=== PATIENT | female | born 1975 | race Asian ===

== ENCOUNTER 2018-04-20 09:50 | Inpatient (IN) | payer OTHER ==
[~2018-04-20] VITALS: Ht 157.5 cm; Wt 51.0 kg
[2018-04-20] VITALS (7 sets, daily range): BP systolic 89–117; BP diastolic 52–64; PULSE 120
[2018-04-20] MEDS ORDERED: NS 1,000 ML IV ONE ×2 (10:15→11:00)
[2018-04-20] MEDS: METOPROLOL 5 MG/5 ML VIAL IV SCH ×2 (10:21→15:07)
--- NOTE | 2018-04-20 10:22 | REP ---
PORTABLE CHEST, ONE VIEW: HISTORY: Cough. The lungs are clear. The heart is normal in size. The pulmonary vasculature is normal in appearance. IMPRESSION: No acute disease. Electronically Signed by Jose Cruz Garces MD 04/20/2018 10:24 A
[2018-04-20 10:27] LABS: BASO # 0.1 10^3/uL (0.0-0.2); BASO % 0.8 % (0.0-1.0); EOS # 0.1 10^3/uL (0.0-0.50); EOS % 1.4 % (0.0-3.0); HEMATOCRIT 39.3 % (36.0-47.0); HEMOGLOBIN 12.7 g/dl (12.0-15.5); LYMPH # 2.2 10^3/uL (1.5-4.5); LYMPH % 33.2 % (24.0-44.0); MEAN CORPUSCULAR HEMOGLOBIN 25.9 pg (27.0-33.0); MEAN CORPUSCULAR HGB CONC 32.3 g/dl (32.0-36.5); MONO # 0.6 10^3/uL (0.0-0.8); MONO % 8.7 % (0.0-5.0); NEUTROPHILS # 3.7 10^3/uL (1.8-7.7); NEUTROPHILS % 55.7 % (36.0-66.0); PLATELET COUNT, AUTOMATED 271 10^3/uL (150-450); RED BLOOD COUNT 4.91 10^6/uL (4.00-5.40); WHITE BLOOD COUNT 6.7 10^3/uL (4.0-10.0)
[2018-04-20] MEDS ORDERED: METOPROLOL TART 25 MG TABLET PO ONE (10:30)
[2018-04-20 10:38] LABS: INR 0.94; PROTHROMBIN TIME 12.6 SECONDS (12.1-14.4)
[2018-04-20 10:53] LABS: HCG, SERUM QUALITATIVE NEGATIVE (NEGATIVE)
[2018-04-20 11:04] LABS: ALT/SGPT 35 U/L (12-78); BLOOD UREA NITROGEN 11 MG/DL (7-18); CALCIUM LEVEL 8.9 MG/DL (8.5-10.1); CARBON DIOXIDE LEVEL 20 MEQ/L (21-32); CHLORIDE LEVEL 108 MEQ/L (98-107); CPK CREATINE PHOSPHOKINASE 120 U/L (26-192); CREATININE FOR GFR 0.72 MG/DL (0.55-1.30); GLOMERULAR FILTRATION RATE > 60.0 (>58); GLUCOSE, FASTING 103 MG/DL (70-100); POTASSIUM SERUM 3.8 MEQ/L (3.5-5.1); SODIUM LEVEL 141 MEQ/L (136-145)
[2018-04-20 11:05] LABS: ALBUMIN 3.8 GM/DL (3.2-5.2); BILIRUBIN,DIRECT < 0.1 MG/DL (0.0-0.2); BILIRUBIN,TOTAL 0.6 MG/DL (0.2-1.0); CK-MB VALUE MASS < 1.0 NG/ML (<3.6); MB/CK RELATIVE INDEX 0.83 (< OR =4); NT-PRO BNP 667 PG/ML (<125); THYROXINE (T4) 12.5 UG/DL (4.5-12.0); TOTAL PROTEIN 7.7 GM/DL (6.4-8.2); TROPONIN I < 0.02 NG/ML (< 0.10)
[2018-04-20] MEDS ORDERED: HAIRTAB5 PO (11:19)
[2018-04-20] MEDS ORDERED: ISOVUE-370 76% 100ML VIAL (Q9967) As Ordered ONE (11:26)
[2018-04-20] MEDS ORDERED: APIXABAN 5 MG TAB (ELIQUIS) PO ONE (12:45)
--- NOTE | 2018-04-20 12:45 | REP ---
CT pulmonary angiogram: With IV contrast. History: Rapid atrial fibrillation. Shortness of breath. Comparison is made with today's chest x-ray. Comparison studies: Today's chest x-ray. Contrast dose: 75 cc's of Isovue [address] technique: Helical scanning is acquired and overlapping 1.5 mm and contiguous 3 mm axial images are reformatted. In addition, maximum intensity projection and multiplanar re-formation images are generated in sagittal and coronal imaging projections. CT pulmonary angiographic findings: There is good opacification of the pulmonary arterial tree. There is no CT evidence of pulmonary embolism. Thoracic aorta enhances homogeneously and is normal in course and caliber. No mediastinal mass or adenopathy is observed. No hilar adenopathy is seen. The lung arguelles are clear. There is a mild pectus. No acute bony abnormality is appreciated. No adrenal abnormality is seen. The visualized upper abdominal structures are unremarkable. Impression: Negative CT pulmonary angiogram. No CT evidence of pulmonary embolus. Electronically Signed by Jeremy Ferrer MD 04/20/2018 12:37 P
--- NOTE | 2018-04-20 14:18 | HPE ---
DATE OF ADMISSION: 04/20/2018 This is a 42-year-old female with no past medical history, who presents to the emergency room with palpitations and shortness of breath for the last 3 days. The shortness of breath is particularly predominantly as she was going to bed to lay back. She has never had symptoms like this before. She had no associated chest pain or diaphoresis. She has no early history of coronary disease in her family. In the emergency room (ER), she was found to be in atrial fibrillation (AFib) at 170 beats per minute. Was given 5 of Lopressor IV push. Responded very well and dropped between 88-90 with a rhythm of AFib and her symptoms got better. She was also given Lopressor 25 mg times one by mouth. At this time, her rate is at 85 beats per minute and she is resting comfortably. She had a second 12-lead EKG done, which showed atrial fibrillation, but showed what appeared to be ST elevations in the precordial leads. CT angio was done, which showed no evidence of pulmonary embolism (PE). So she will be admitted for further management in the progressive care unit (PCU). Dr. Murray is aware and will be our feather duster winder on consult. Again, no past medical history and surgical history. She has NO KNOWN DRUG ALLERGIES. Family history is negative for early coronary disease. SOCIAL HISTORY: Patient denies tobacco, alcohol, illicit drugs. She takes no medications at home. Review of systems is negative for all ten major systems except what is mentioned in the history of present illness (HPI). Vital signs: Blood pressure 108/55. Pulse is 88, irregular. Respiratory rate 20. Temperature is 96.5. Oxygen saturation is 98% on room air. Head is atraumatic, normocephalic. Neck: Supple. No jugular venous distention (JVD). Lungs are clear to auscultation. S1, S2 audible. No murmurs appreciated. Abdomen is soft. Positive bowel sounds. No pedal edema. Skin intact. Neurologic examination: Patient awake, alert, oriented times three. LABS: WBC 6.7, hemoglobin 12.7hematocrit 39.3, platelets are 271,000. Sodium 141, potassium 3.8, chloride 108, CO2 20, anion gap 13 BUN 11, creatinine 0.72, lactic acid 3.7, fasting glucose is 103, troponin is less than 0.02, BNP 667, TSH 1.4.9. IMPRESSION: Atrial fibrillation with rapid ventricular response (RVR), new onset. PLAN: The patient will be admitted to the progressive care unit (PCU). We will get a second troponin to rule out acute coronary syndrome. Lactic acid is a bit elevated at 3.7. I will put her on normal saline (NS) at 100 an hour. We will follow lactic levels. Dr. Murray will see the patient within the next 24 hours. In the meantime, we will get an echocardiogram of her heart, and I am going to continue her on Lopressor 25 mg by mouth twice a day and as per Dr. Murray Eliquis 5 mg by mouth twice a day.
[2018-04-20] MEDS: NS 1,000 ML IV SCH ×2 (15:07→18:42)
--- NOTE | 2018-04-20 18:10 | ECGEPIP ---
Stationary ECG Study [facility] ED Test Date: 2018-04-20 Pat Name: MARIA ELENA RAMÍREZ Department: Room: - Gender: F Floral Specialist: : [id number] Requested By: Ravinder Orozco Order Number: [id number] Reading MD: Ravinder Orozco Measurements Intervals [place] Rate: 156 P: TN: 0 QRS: 32 QRSD: 81 T: -4 QT: 264 QTc: 426 Interpretive Statements ATRIAL FIBRILLATION WITH RAPID VENTRICULAR RESPONSE POSSIBLE RIGHT VENTRICULAR CONDUCTION DELAY MODERATE ST DEPRESSION NO OLD ECG FOR COMPARISON Electronically Signed On 04-20-2018 18:10:12 EST by Ravinder Orozco
--- NOTE | 2018-04-20 18:11 | ECGEPIP ---
Stationary ECG Study [facility] ED Test Date: 2018-04-20 Pat Name: MARIA ELENA RAMÍREZ Department: Room: - Gender: F Intake Manager: EVELINA : [id number] Requested By: Ravinder Orozco Order Number: [id number] Reading MD: Ravinder Orozco Measurements Intervals [place] Rate: 84 P: [place]: 0 QRS: 53 QRSD: 85 T: 52 QT: 338 QTc: 400 Interpretive Statements ATRIAL FIBRILLATION POSSIBLE RIGHT VENTRICULAR CONDUCTION DELAY NONSPECIFIC ST T WAVE CHANGES ABNORMAL RHYTHM ECG CW 04/20/[address] ELEVATION - TO CONSIDER PERICARDITIS Electronically Signed On 04-20-2018 18:11:12 EST by Ravinder Orozco
[2018-04-20] MEDS: APIXABAN 5 MG TAB (ELIQUIS) PO SCH (20:00)
[2018-04-20] MEDS ORDERED: METOPROLOL TART 25 MG TABLET PO SCH (21:00)
[2018-04-21] VITALS (9 sets, daily range): BP systolic 94–133; BP diastolic 52–74; PULSE 118–130
[2018-04-21 05:52] LABS: BASO % 0.5 % (0.0-1.0); EOS # 0.1 10^3/uL (0.0-0.50); EOS % 1.9 % (0.0-3.0); HEMATOCRIT 33.3 % (36.0-47.0); HEMOGLOBIN 10.4 g/dl (12.0-15.5); LYMPH # 1.7 10^3/uL (1.5-4.5); LYMPH % 28.5 % (24.0-44.0); MEAN CORPUSCULAR HEMOGLOBIN 25.8 pg (27.0-33.0); MEAN CORPUSCULAR HGB CONC 31.2 g/dl (32.0-36.5); MEAN CORPUSCULAR VOLUME 82.6 fl (80.0-96.0); MONO # 0.5 10^3/uL (0.0-0.8); MONO % 8.9 % (0.0-5.0); NEUTROPHILS # 3.5 10^3/uL (1.8-7.7); PLATELET COUNT, AUTOMATED 219 10^3/uL (150-450); RED BLOOD COUNT 4.03 10^6/uL (4.00-5.40); WHITE BLOOD COUNT 5.9 10^3/uL (4.0-10.0)
[2018-04-21 06:11] LABS: BLOOD UREA NITROGEN 8 MG/DL (7-18); CALCIUM LEVEL 7.6 MG/DL (8.5-10.1); CARBON DIOXIDE LEVEL 21 MEQ/L (21-32); CHLORIDE LEVEL 115 MEQ/L (98-107); CREATININE FOR GFR 0.48 MG/DL (0.55-1.30); GLOMERULAR FILTRATION RATE > 60.0 (>58); GLUCOSE, FASTING 91 MG/DL (70-100); POTASSIUM SERUM 3.6 MEQ/L (3.5-5.1); SODIUM LEVEL 142 MEQ/L (136-145)
[2018-04-21] MEDS ORDERED: NS 500 ML IV ONE (07:00)
[2018-04-21] MEDS ORDERED: METOPROLOL TART 50 MG TAB PO ONE (07:00)
--- NOTE | 2018-04-21 08:07 | IPNPDOC ---
Date Seen The patient was seen on 04/21/18. Progress Note SUBJECTIVE: Pt's blood pressure has been too low to give metoprolol. IV NS 500 ml bolus given. AM dose of metoprolol still being held. Denies any sob, chest pain, pressure, tightness, lightheadedness, or dizziness. TELE: Afib 90-130bpm. PHYSICAL EXAMINATION: Vital signs:PLS SEE BELOW Head is atraumatic, normocephalic. Neck: Supple. No jugular venous distention (JVD). Lungs are clear to auscultation. Heart: irregularly irregular. S1, S2 audible. No murmurs appreciated. Abdomen is soft. Positive bowel sounds. No pedal edema. Skin intact. Neurologic examination: Patient awake, alert, oriented times three. LABS: PLS SEE BELOW IMPRESSION: Atrial fibrillation with rapid ventricular response (RVR), new onset. ASSESSMENT AND PLAN: This is a 42-year-old female with no past medical history, who presents to the emergency room with palpitations and shortness of breath for the last 3 days. The shortness of breath is particularly predominantly as she was going to bed to lay back. She has never had symptoms like this before. She had no associated chest pain or diaphoresis. She has no early history of coronary disease in her family. In the emergency room (ER), she was found to be in atrial fibrillation (AFib) at 170 beats per minute. Was given 5 of Lopressor IV push. Responded very well and dropped between 88-90 with a rhythm of AFib and her symptoms got better. She was also given Lopressor 25 mg times one by mouth. At this time, her rate is at 85 beats per minute and she is resting comfortably. She had a second 12-lead EKG done, which showed atrial fibrillation, but showed what appeared to be ST elevations in the precordial leads. CT angio was done, which showed no evidence of pulmonary embolism (PE). So she will be admitted for further management in the progressive care unit (PCU). Dr. Murray is aware and will be our warehouse clerk on consult. T he patient will be admitted to the progressive care unit (PCU). We will get a second troponin to rule out acute coronary syndrome. Lactic acid is a bit elevated at 3.7.on normal saline (NS). normal lactic levels this morning. Atrial Fibrillation with rapid ventricular response: on metoprolol 50 mg po bid,but held due to low blood pressure. no signs of chf. given ns iv bolus and iv cardizem once bp improves. Dr. Murray will see the patient echocardiogram of her heart, Eliquis 5 mg by mouth twice a day. Diet: CHILO Code: full Disposition: pending rate control. VS, I&O, 24H, Fishbone Vital Signs/I&O Vital Signs Date Time Temp Pulse Resp B/P (MAP) Pulse Ox O2 Delivery O2 Flow Rate FiO2 04/21/18 04:00 96.8 117 100/58 (72) 04/20/18 23:59 20 100 Room Air 04/20/18 11:55 2.0 I&O- Last 24 Hours up to 6 AM 04/21/18 06:00 Intake Total 860 ml Output Total 1100 ml Balance -240 ml Laboratory Data 24H LABS Laboratory Tests 2 04/20/18 10:16: Immature Granulocyte % (Auto) 0.2, White Blood Count 6.7, Red Blood Count 4.91, Hemoglobin 12.7, Hematocrit 39.3, Mean Corpuscular Volume 80.0, Mean Corpuscular Hemoglobin 25.9L, Mean Corpuscular Hemoglobin Concent 32.3, Red Cell Distribution Width 13.4, Platelet Count 271, Neutrophils (%) (Auto) 55.7, Lymphocytes (%) (Auto) 33.2, Monocytes (%) (Auto) 8.7H, Eosinophils (%) (Auto) 1.4, Basophils (%) (Auto) 0.8, Neutrophils # (Auto) 3.7, Lymphocytes # (Auto) 2.2, Monocytes # (Auto) 0.6, Eosinophils # (Auto) 0.1, Basophils # (Auto) 0.1, Nucleated Red Blood Cells % (auto) 0.0, Prothrombin Time 12.6, Prothromb Time International Ratio 0.94, Anion Gap 13, Glomerular Filtration Rate > 60.0, Lactic Acid Level 3.7*H, Calcium Level 8.9, Aspartate Amino Transf (AST/SGOT) 40 H, Alanine Aminotransferase (ALT/SGPT) 35, Alkaline Phosphatase 117, Total Bilirubin 0.6, Direct Bilirubin < 0.1, Total Creatine Kinase 120, Creatine Kinase MB < 1.0, Creatine Kinase MB Relative Index 0.83, Troponin I < 0.02, KZ-Emm-M-Type Natriuretic Peptide 667H, Total Protein 7.7, Albumin 3.8, Al bumin/Globulin Ratio 0.97L, Thyroid Stimulating Hormone (TSH) 1.490, Thyroxine (T4) 12.5H, Human Chorionic Gonadotropin, Qual NEGATIVE 04/20/18 14:40: Lactic Acid Followup at 4 Hours 1.7 04/20/18 18:10: Troponin I < 0.02 04/21/18 05:25: Immature Granulocyte % (Auto) 0.2, White Blood Count 5.9, Red Blood Count 4.03, Hemoglobin 10.4#L, Hematocrit 33.3L, Mean Corpuscular Volume 82.6, Mean Corpuscular Hemoglobin 25.8L, Mean Corpuscular Hemoglobin Concent 31.2L, Red Cell Distribution Width 13.4, Platelet Count 219, Neutrophils (%) (Auto) 60.0, Lymphocytes (%) (Auto) 28.5, Monocytes (%) (Auto) 8.9H, Eosinophils (%) (Auto) 1.9, Basophils (%) (Auto) 0.5, Neutrophils # (Auto) 3.5, Lymphocytes # (Auto) 1.7, Monocytes # (Auto) 0.5, Eosinophils # (Auto) 0.1, Basophils # (Auto) 0.0, Nucleated Red Blood Cells % (auto) 0.0, Anion Gap 6L, Glomerular Filtration Rate > 60.0, Calcium Level 7.6L, Blood Urea Nitrogen 8, Creatinine 0.48L, Sodium L evel 142, Potassium Level 3.6, Chloride Level 115H, Carbon Dioxide Level 21 CBC/BMP Laboratory Tests 04/20/18 10:16 Red Blood Count 4.91, Mean Corpuscular Volume 80.0, Mean Corpuscular Hemoglobin 25.9 L, Mean Corpuscular Hemoglobin Concent 32.3, Red Cell Distribution Width 13.4, Neutrophils (%) (Auto) 55.7, Lymphocytes (%) (Auto) 33.2, Monocytes (%) (Auto) 8.7 H, Eosinophils (%) (Auto) 1.4, Basophils (%) (Auto) 0.8, Neutrophils # (Auto) 3.7, Lymphocytes # (Auto) 2.2, Monocytes # (Auto) 0.6, Eosinophils # (Auto) 0.1, Basophils # (Auto) 0.1 04/21/18 05:25 Red Blood Count 4.03, Mean Corpuscular Volume 82.6, Mean Corpuscular Hemoglobin 25.8 L, Mean Corpuscular Hemoglobin Concent 31.2 L, Red Cell Distribution Width 13.4, Neutrophils (%) (Auto) 60.0, Lymphocytes (%) (Auto) 28.5, Monocytes (%) (Auto) 8.9 H, Eosinophils (%) (Auto) 1.9, Basophils (%) (Auto) 0.5, Neutrophils # (Auto) 3.5, Lymphocytes # (Auto) 1.7, Monocytes # (Auto) 0.5, Eosinophils # (Auto) 0.1, Basophils # (Auto) 0.0, Calcium Level 7.6 L Microbiology Microbiology 04/20/18 Blood Culture, Received Pending 04/20/18 Blood Culture, Received Pending ELIZABETH ARNDT MD Apr 21, 2018 06:59
--- NOTE | 2018-04-21 08:10 | ECHO ---
DATE OF PROCEDURE: 04/20/2018 REFERRING PHYSICIAN: Dr. Mary Tejeda. INDICATION: Atrial fibrillation. Height 157 cm. Weight 51 kg. DIMENSIONS: IVS: 1.0 LV: 3.7 LVPW: 0.9 LA: 3.3 Aorta: 2.9 Mitral E wave velocity: 9.6 FINDINGS: The study is of fair technical quality. This is surprising in consideration of small body habitus. The patient is in atrial fibrillation with controlled rate. Left ventricle is of normal size and overall normal systolic function, I estimate ejection fraction around 60%. Right ventricle appears also normal size and systolic function. Both atria appear grossly normal. Aortic mitral and tricuspid valves appear normal. Pulmonic valve was not well seen. No pericardial effusion is noted but especially the area adjacent to right ventricle was not well seen and I cannot completely rule it out. Inferior vena cava is normal size. Aortic root is normal. Aortic arch and abdominal aorta were not well seen. Doppler interrogation reveals no significant aortic valve disease. There is trace mitral and trace tricuspid insufficiency. Calculated pulmonary artery pressure is within normal limits. Evaluation of diastolic function is inconclusive due to atrial fibrillation but tissue Doppler velocity of mitral annulus are preserved and consequently I assume that the diastolic function is likely normal or near normal. CONCLUSIONS: 1. Study is of fair technical quality. 2. Normal LV size and systolic function. 3. No significant valvular disease. 4. Likely normal central venous pressure and normal pulmonary artery pressure. 5. No visualized pericardial effusion. COMMENT: SBE prophylaxis is not recommended. Study does not provide obvious explanation as to why the patient developed atrial fibrillation.
[2018-04-21] MEDS ORDERED: METOPROLOL TART 25 MG TABLET PO SCH (09:00)
[2018-04-21] MEDS ORDERED: METOPROLOL TART 50 MG TAB PO SCH (09:00)
[2018-04-21] MEDS: NS 1,000 ML IV SCH (09:34)
[2018-04-21] MEDS: APIXABAN 5 MG TAB (ELIQUIS) PO SCH (09:35)
[2018-04-21] MEDS ORDERED: SLF 3 ML SYR IV PRN (16:45)
[2018-04-21] MEDS ORDERED: ELIQ5TAB PO (19:55)
[2018-04-21] MEDS ORDERED: METO1TAB87 PO (19:55)
[2018-04-21] MEDS ORDERED: METOPROLOL TART 25 MG TABLET PO ONE (20:00)
[2018-04-21] MEDS ORDERED: APIXABAN 5 MG TAB (ELIQUIS) PO ONE (20:00)
--- NOTE | 2018-04-21 20:42 | CR ---
DATE OF CARDIOLOGY CONSULTATION: 04/21/2018 REFERRING PHYSICIAN: Dr. Le, Dr. Dela Cruz INDICATION: Atrial fibrillation with rapid ventricular response. HISTORY OF PRESENT ILLNESS Mrs. Rivas is previously unknown to me. She is very pleasant 42-year-old female originally from [facility] who was admitted yesterday evening from the emergency room where she presented with approximately 3-day history of shortness of breath and palpitations. She describes that initially she started having episodes of palpitations associated with shortness of breath with brief intervals that lasted only a few minutes each, but then over the course of next 2 days the frequency of the episodes increased and the day prior to the admission she started having palpitations and consistent shortness of breath in the evening hours. On the day of the admission on April 20 she presented to the ER with atrial fibrillation with rapid ventricular response. So on presentation to emergency room she was found to be in atrial fibrillation with rapid ventricular response. She received initially 5 mg of IV metoprolol that led to fairly significant slowing of her heart rate and then with oral metoprolol 25 mg her heart rate was reasonably well-controlled. But she remained in atrial fibrillation overnight. She had a CT angiography of the chest that revealed no evidence for pulmonary embolism and no obvious pathology. She also had an echocardiogram performed which revealed no significant abnormalities other than atrial fibrillation. This morning she converted to sinus rhythm. PAST MEDICAL HISTORY: Essentially negative. She does not carry any history of medical problems. She specifically denies any history of hypertension, diabetes or hypercholesterolemia. She does have a mild kyphoscoliosis since childhood. PAST SURGICAL HISTORY: Negative. FAMILY HISTORY: She denies any first-degree relatives with coronary artery disease or atrial fibrillation. SOCIAL HISTORY: The patient is . She is mother of three children. Denies any history of alcohol. Denies any drugs, does not smoke. She is . REVIEW OF SYSTEMS: She denies any unusual events lately. There was no sickness in her family. She denies any recent fever, chills, nausea or vomiting. There has been no cough. There has been no diarrhea. There were no peripheral edema. Rest of review of systems is negative. PHYSICAL EXAMINATION: On the physical examination Mrs. Jerrica Rivas is a middle aged female alert and oriented and appropriate, in no distress. VITAL SIGNS: Blood pressure 110/70, heart rate mostly in 80s. She is afebrile. Saturation is 100% on room air. Weight is documented as 51 kg. Her jugular venous pressure is not elevated. I do not appreciate goiter. There are no carotid bruits. LUNGS: Clear to auscultation bilaterally with good air movement. No wheezing, crackles or rhonchi are seen. CARDIAC: She has regular rhythm. No gallop, rub, or murmur is appreciated. ABDOMEN: Soft, nontender. No hepatosplenomegaly. EXTREMITIES: Free of edema. Peripheral pulses are good quality. There are no skin lesions. LABORATORY DATA: As of this morning her basic metabolic panel is normal. Yesterday evening she had elevated lactic acid at 3.7. She has normal liver function tests. Cardiac enzymes are negative times two. Her NT-proBNP was 667, albumin 3.8 and TSH 1.5. HCG was negative. INR was 0.9 and CBC this morning: hemoglobin 10.4, hematocrit 33, platelet count 219,000 and WBC count 5.9. IMAGING: As per history of present illness, CT angiography of the chest was unremarkable. Echocardiogram is also without significant pathology. She had two ECGs yesterday morning both of which revealed atrial fibrillation; initial one with rapid ventricular response, the second one with controlled response and both of them reveal nonspecific repolarization abnormalities. ASSESSMENT AND PLAN: Mrs. Johnson is a 42-year-old female who came with a 3-day history of initially likely paroxysmal but then persistent atrial fibrillation. She was in atrial fibrillation steadily approximately 36 hours based on her description. She does not have any additional risk factors for stroke, specifically she is young, she does not have any congestive heart failure. There is no history of hypertension, diabetes or prior stroke. In my opinion, the patient can be safely discharged. She has been now in sinus rhythm for approximately 12 hours without relapse. I do not believe that she needs to be chronically anticoagulated because of her very low MARISA-VASc score. Consequently, I will discharge her on aspirin 325 mg daily and will change her Eliquis to aspirin at 325 mg. She will still get her evening dose of metoprolol and Eliquis here. Medication tomorrow will be called to [facility].
[2018-04-21] MEDS ORDERED: ASPI81TA85 PO (21:38)
[2018-04-21] MEDS ORDERED: ASPI325T25 PO (21:43)
[2018-04-21] MEDS ORDERED: SLF 3 ML SYR IV SCH (22:00)
== END 2018-04-21 22:00 | disposition home or self-care (01) | DRG 310 ==
LOC: M ED 09:50 → M ED INP 13:43 → M PCU 15:23
PROVIDERS: ADMIT Internal Medicine; ATTEND General Practice
DX: I48.0 Paroxysmal atrial fibrillation (principal); I48.1 Persistent atrial fibrillation

== ENCOUNTER 2018-04-24 07:15 | Emergency (ER) | payer OTHER ==
[~2018-04-24] VITALS: Ht 157.5 cm; Wt 53.5 kg
[~2018-04-24 07:15] MED LIST: ASPI325T25 PO; ASPI81TA85 PO; ELIQ5TAB PO; HAIRTAB5 PO; METO1TAB87 PO
[2018-04-24 07:59] LABS: BASO % 0.3 % (0.0-1.0); EOS # 0.1 10^3/uL (0.0-0.50); EOS % 1.5 % (0.0-3.0); HEMATOCRIT 35.3 % (36.0-47.0); HEMOGLOBIN 11.2 g/dl (12.0-15.5); LYMPH # 1.3 10^3/uL (1.5-4.5); LYMPH % 20.4 % (24.0-44.0); MEAN CORPUSCULAR HEMOGLOBIN 26.2 pg (27.0-33.0); MEAN CORPUSCULAR HGB CONC 31.7 g/dl (32.0-36.5); MEAN CORPUSCULAR VOLUME 82.7 fl (80.0-96.0); MONO # 0.5 10^3/uL (0.0-0.8); MONO % 7.6 % (0.0-5.0); NEUTROPHILS # 4.6 10^3/uL (1.8-7.7); NEUTROPHILS % 69.9 % (36.0-66.0); PLATELET COUNT, AUTOMATED 227 10^3/uL (150-450); RED BLOOD COUNT 4.27 10^6/uL (4.00-5.40); WHITE BLOOD COUNT 6.6 10^3/uL (4.0-10.0)
--- NOTE | 2018-04-24 08:03 | REP ---
Portable chest x-ray: Single view. History: Chest pain. Comparison study: April 20, 2018. Findings: The lungs are well inflated and free of infiltrate. Pleural angles are sharp. Nipple silhouettes project at the bases. Heart is not felt to be enlarged. Pulmonary vasculature is not increased. Pleural angles are sharp. No acute bony abnormality is appreciated. Impression: No active disease. Electronically Signed by Jeremy Ferrer MD 04/24/2018 07:55 A
[2018-04-24 08:33] LABS: BLOOD UREA NITROGEN 10 MG/DL (7-18); CARBON DIOXIDE LEVEL 21 MEQ/L (21-32); CHLORIDE LEVEL 108 MEQ/L (98-107); CK-MB VALUE MASS < 1.0 NG/ML (<3.6); CPK CREATINE PHOSPHOKINASE 117 U/L (26-192); FREE T4 1.17 NG/DL (0.76-1.46); GLOMERULAR FILTRATION RATE > 60.0 (>58); GLUCOSE, FASTING 90 MG/DL (70-100); MAGNESIUM LEVEL 2.3 MG/DL (1.8-2.4); MB/CK RELATIVE INDEX 0.85 (< OR =4); POTASSIUM SERUM 4.2 MEQ/L (3.5-5.1); SODIUM LEVEL 139 MEQ/L (136-145); TROPONIN I < 0.02 NG/ML (< 0.10)
[2018-04-24] MEDS ORDERED: FLECAINIDE 50MG TABLET PO ONE (09:15)
[2018-04-24] MEDS ORDERED: FLEC50HA PO (10:11)
[2018-04-24 10:15] VITALS: BP 101/61
--- NOTE | 2018-04-24 10:50 | ECGEPIP ---
Stationary ECG Study [facility] ED Test Date: 2018-04-24 Pat Name: MARIA ELENA RAMÍREZ Department: Room: - Gender: F Briquette Operator: : 1975 Requested By: Juan Pimentel Order Number: [id number] Reading MD: Corina Cade Measurements Intervals [place] Rate: 79 P: 70 NV: 130 QRS: 37 QRSD: 89 T: 35 QT: 358 QTc: 411 Interpretive Statements SINUS RHYTHM POSSIBLE RIGHT VENTRICULAR CONDUCTION DELAY PRIOR ATRIAL FIBRILLATION 04/20/18 Electronically Signed On 04-24-2018 10:49:50 EST by Corina Cade
== END 2018-04-24 10:44 | disposition home or self-care (01) ==
LOC: M ED 07:15
DX: R00.2 Palpitations (principal); I45.10 Unspecified right bundle-branch block; Z86.79 Personal history of other diseases of the circulatory system; Z79.899 Other long term (current) drug therapy; Z79.82 Long term (current) use of aspirin